=== PATIENT | male | born 1960 | race Caucasian/White ===

== ENCOUNTER → 2018-11-14 | Outpatient (REF) | payer BC ==
[~2018-11-14] MED LIST: ATOR40TA75 PO; FLOM0.4C39 PO; HYDR12CA PO; IBUP-1022 PO; JARD1TAB PO; LEVO500T PO; LISI-542 PO; METF10004 PO; PERC7.5T12 PO; VENTAER INH
== END ==
LOC: M LAB LCGH 15:15
PROVIDERS: ATTEND Surgery
DX: Z00.00 Encounter for general adult medical examination without abnormal findings (principal)

== ENCOUNTER → 2022-05-03 | Outpatient (CLI) | payer BC ==
[~2022-05-03] MED LIST changes: +ACET500T15 PO; +FARX1TAB5 PO; -LISI-542 PO; +LISI5TAB11 PO; +ONDA-83 PO; +OXYC1TAB23 PO; +POTA10808 PO
== END ==
LOC: M LABSMTC 10:56
PROVIDERS: ATTEND Anesthesiology
DX: Z01.812 Encounter for preprocedural laboratory examination (principal); Z20.822 Contact with and (suspected) exposure to COVID-19

== ENCOUNTER 2022-05-06 08:21 | Day surgery (SDC) | payer BC ==
[~2022-05-06] VITALS: Ht 160 cm; Wt 96.7 kg
[~2022-05-06 08:21] MED LIST changes: +ACETAMINOPHEN 1000MG 100ML IV BTL (OFIRMEV) (J0131 PER 10MG) As Ordered ONE; +LIDOCAINE 2% 100MG/5ML SDV (FOR ANES.) As Ordered ONE; +MIDAZOLAM INJ 2MG/2ML VIAL (J2250 PER 1MG) As Ordered ONE; +ONDANSETRON 4MG 2ML VIAL As Ordered ONE; +ceFAZolin SOD 2 GM in IV 1 EA IV ONE; +dexameTHASONE 4 MG/ML 1ML VIAL (J1100 PER 1MG) As Ordered ONE; +fentaNYL 100 MCG/2 ML INJECTION As Ordered ONE; +propofoL 200 MG/20 ML VIAL As Ordered ONE
[2022-05-06] MEDS ORDERED: LR 1,000 ML IV SCH ×2 (08:40→13:00)
[2022-05-06] MEDS ORDERED: ISOVUE-300 61% 50ML VIAL As Ordered ONE (11:38)
[2022-05-06] MEDS ORDERED: oxyCODONE 5MG TAB PO PRN (13:00)
[2022-05-06] MEDS ORDERED: ONDANSETRON 4MG 2ML VIAL IV PRN (13:00)
[2022-05-06] MEDS ORDERED: HYDROMORPHONE HCL 0.5 MG/ 0.5 ML SYRINGE (J1170 PER 1) IV PRN (13:00)
[2022-05-06] MEDS ORDERED: fentaNYL 100 MCG/2 ML INJECTION IV PRN (13:00)
[2022-05-06 14:30] VITALS: BP 164/81
== END 2022-05-06 14:40 | disposition home or self-care (01) ==
LOC: M SDC 08:21
PROVIDERS: ATTEND Urology
DX: N20.1 Calculus of ureter (principal); I10 Essential (primary) hypertension; E78.5 Hyperlipidemia, unspecified; E11.9 Type 2 diabetes mellitus without complications; Z79.84 Long term (current) use of oral hypoglycemic drugs; Z79.899 Other long term (current) drug therapy; F17.200 Nicotine dependence, unspecified, uncomplicated
CPT/HCPCS: 52356; 74420; 82365; C1769; C1894; C2617; J0131; J0690; J1100; J2250; J2405; J3010; Q9967

== ENCOUNTER 2022-05-21 06:46 | Day surgery (SDC) | payer BC ==
[~2022-05-21] VITALS: Ht 160 cm; Wt 97.9 kg
[~2022-05-21 06:46] MED LIST changes: -ACETAMINOPHEN 1000MG 100ML IV BTL (OFIRMEV) (J0131 PER 10MG) As Ordered ONE; -LIDOCAINE 2% 100MG/5ML SDV (FOR ANES.) As Ordered ONE; -MIDAZOLAM INJ 2MG/2ML VIAL (J2250 PER 1MG) As Ordered ONE; -ONDANSETRON 4MG 2ML VIAL As Ordered ONE; -dexameTHASONE 4 MG/ML 1ML VIAL (J1100 PER 1MG) As Ordered ONE; -fentaNYL 100 MCG/2 ML INJECTION As Ordered ONE; -propofoL 200 MG/20 ML VIAL As Ordered ONE
[2022-05-21] MEDS ORDERED: propofoL 200 MG/20 ML VIAL As Ordered ONE (08:29)
[2022-05-21] MEDS ORDERED: fentaNYL 100 MCG/2 ML INJECTION As Ordered ONE ×2 (08:30→09:08)
[2022-05-21] MEDS ORDERED: dexameTHASONE 4 MG/ML 1ML VIAL (J1100 PER 1MG) As Ordered ONE (09:03)
[2022-05-21] MEDS ORDERED: ONDANSETRON 4MG 2ML VIAL As Ordered ONE (09:03)
[2022-05-21] MEDS ORDERED: MORPHINE 2 MG/ML 1ML VIAL IV PRN (10:00)
[2022-05-21] MEDS ORDERED: ONDANSETRON 4MG 2ML VIAL IV PRN (10:00)
[2022-05-21] MEDS ORDERED: fentaNYL 100 MCG/2 ML INJECTION IV PRN (10:00)
[2022-05-21] MEDS ORDERED: LR 1,000 ML IV SCH (10:00)
[2022-05-21] MEDS ORDERED: oxyCODONE 5MG TAB PO PRN (10:00)
[2022-05-21] MEDS ORDERED: PERCOCET 5MG/325MG TAB PO PRN (10:10)
[2022-05-21 13:00] VITALS: BP 176/88
== END 2022-05-21 13:00 | disposition home or self-care (01) ==
LOC: M SDC 06:46
PROVIDERS: ATTEND Urology
DX: N20.0 Calculus of kidney (principal); I10 Essential (primary) hypertension; E11.9 Type 2 diabetes mellitus without complications; N40.0 Benign prostatic hyperplasia without lower urinary tract symptoms; F17.220 Nicotine dependence, chewing tobacco, uncomplicated; Z79.84 Long term (current) use of oral hypoglycemic drugs; Z79.899 Other long term (current) drug therapy; E78.5 Hyperlipidemia, unspecified
CPT/HCPCS: 50590; 52332; 74018; C2617; J0690; J1100; J2405; J3010

== ENCOUNTER → 2024-01-06 | Outpatient (REF) | payer BC ==
[~2024-01-06] MED LIST changes: -ceFAZolin SOD 2 GM in IV 1 EA IV ONE
== END ==
LOC: M SMT 12:06
PROVIDERS: ATTEND Urology
DX: N20.0 Calculus of kidney (principal)